=== PATIENT | female | born 1955 | race Caucasian/White ===

== ENCOUNTER 2022-03-15 19:38 | Inpatient (IN) | payer MEDICAID ==
[~2022-03-15] VITALS: Ht 157.5 cm; Wt 74.8 kg
[~2022-03-15 19:38] MED LIST: ALBU0.0912 IH; ASPI-1205 PO; AZIT250T3 PO; DEC1 PO; LISI-487 PO; RIVA20TA PO
[2022-03-15 20:18] VITALS: BP 227/105
[2022-03-15] MEDS ORDERED: LABETALOL 100 MG/20 ML VIAL IVP ONE ×2 (20:25→21:45)
--- NOTE | 2022-03-15 20:30 | NUR ---
received pt from intake and placed to bed 09. pt currently a/o x 4, gcs 15. able to move all extremities freely. pt is a 66 year old female with hx of HTN coming from home. she was recommended by her PCP to come in for evaluation of her HIGH BP. pt currently take metoprolol at home but does not seem to be working. sts that high BP has been happening since yesterday.
[2022-03-15 20:38] LABS: BASOPHILS % (AUTO) 0.9 % (0.0-2.0); EOSINOPHILS # (AUTO) 0.1 K/uL (0-0.4); EOSINOPHILS % (AUTO) 1.5 % (0.0-4.0); HEMATOCRIT 36.7 % (36-48); HEMOGLOBIN 12.3 g/dL (12.0-16.0); LYMPHOCYTES % (AUTO) 41.1 % (20.5-51.1); MEAN CORPUSCULAR HEMOGLOBIN 28 pg (27-31); MEAN CORPUSCULAR HGB CONC 34 g/dL (33-37); MEAN CORPUSCULAR VOLUME 82.3 fL (80-94); MONOCYTES # (AUTO) 0.4 K/uL (0.8-1.0); MONOCYTES % (AUTO) 8.6 % (1.7-9.3); NEUTROPHILS # (AUTO) 2.3 K/uL (1.8-7.7); NEUTROPHILS % (AUTO) 47.9 % (42.2-75.2); PLATELET COUNT (AUTO) 200 K/uL (140-450); RED BLOOD CELL COUNT(AUTO) 4.45 MIL/uL (4.20-5.40); RED CELL DISTRIBUTION WIDTH 14.7 % (11.6-13.7); WHITE BLOOD COUNT (AUTO) 4.9 K/uL (4.8-10.8)
[2022-03-15 21:08] LABS: ALBUMIN 3.8 g/dL (3.4-5.0); ANION GAP 10.4 (8-16); CARBON DIOXIDE 30.2 mmol/L (21-32); CHLORIDE 103 mmol/L (98-107); CREATININE 0.9 mg/dL (0.6-1.3); GFR ARICAN-AMERICAN 80 mL/min (>90); GLUCOSE 106 mg/dL (74-106); LIPASE 121 U/L (73-393); POTASSIUM 3.6 mmol/L (3.5-5.1); SODIUM SERUM 140 mmol/L (136-145); UREA NITROGEN, BLOOD 24 mg/dL (7-18)
[2022-03-15 21:31] LABS: ASPARTATE AMINOTRANSFERASE 20 U/L (15-37); TOTAL BILIRUBIN 0.3 mg/dL (0.0-1.0)
--- NOTE | 2022-03-15 22:29 | NUR ---
covid swab sent to lab.
[2022-03-15] MEDS ORDERED: ENALAPRILAT 2.5 MG/2 ML VIAL IVP ONE (22:40)
--- NOTE | 2022-03-15 22:40 | NUR ---
Dr. Mike made aware of pt remaining to be high BP. will put in orders.
[2022-03-15] MEDS ORDERED: ONDANSETRON 4 MG/2 ML VIAL IM/IVP PRN (22:55)
[2022-03-15] MEDS ORDERED: POTASSIUM CHLORIDE 10 MEQ TABER PO PRN (22:55)
[2022-03-15] MEDS ORDERED: ZOLPIDEM 5 MG TAB PO PRN (22:55)
[2022-03-15] MEDS ORDERED: DOCUSATE SODIUM 100 MG GELCAP PO PRN (22:55)
[2022-03-15] MEDS ORDERED: HYDROcodone/APAP 7.5/325 MG 1 TAB PO PRN (22:55)
[2022-03-15] MEDS ORDERED: ACETAMINOPHEN 325 MG TAB PO PRN (22:55)
[2022-03-15] MEDS ORDERED: guaiFENesin DM 200/20 MG-10 ML 10 ML UDC PO PRN (22:55)
[2022-03-15] MEDS ORDERED: hydrALAZINE 20 MG/ML VIAL IVP PRN (23:00)
[2022-03-15] MEDS ORDERED: cefTRIAXone 1,000 MG in LIDOCAINE MPF 1% 2.1 ML IM SCH (23:05)
[2022-03-15] MEDS ORDERED: cefTRIAXone 1,000 MG in LIDOCAINE MPF 1% 2.1 ML INJ SCH (23:17)
[2022-03-15 23:34] LABS: PROTHROMBIN TIME 10.3 secs (10.8-13.4)
--- NOTE | 2022-03-15 23:39 | NUR ---
report given to Nella LAWS from tele unit.
--- NOTE | 2022-03-15 23:57 | NUR ---
PATIENT TO ROOM 123-A FROM ER. 2350 PATIENT ALERT NO C/O OF PAIN B/P 145/65 TEMP 97.7 ON ROOM AIR LUNGS CLEAR PATIENT ALERT X4 SKIN INTACT ON MONITOR SINUS RHYS. HEART RATE 59.
[2022-03-16] VITALS: BP 145/65
[2022-03-16 01:07] LABS: CHOL/HDL RATIO 7.4 (1-4.5); FREE T4 (FREE THYROXINE) 0.86 ng/dL (0.76-1.46); MAGNESIUM 2.5 mg/dL (1.8-2.4)
[2022-03-16 01:08] LABS: THYROID STIMULATING HORMONE 7.83 uIU/mL (0.34-3.74)
[2022-03-16 04:00] VITALS: BP 145/65
--- NOTE | 2022-03-16 05:49 | NUR ---
DR. Ellie MORALES TEXT BY M.J AROUND 0100 TO SEE IF HE WANTED TO GIVE ROCEPHIN IVPB NO RESPONSE FROM DR. MORALES.
[2022-03-16 05:56] LABS: BASOPHILS % (AUTO) 0.8 % (0.0-2.0); EOSINOPHILS # (AUTO) 0.1 K/uL (0-0.4); EOSINOPHILS % (AUTO) 1.9 % (0.0-4.0); HEMATOCRIT 32.9 % (36-48); HEMOGLOBIN 11.3 g/dL (12.0-16.0); LYMPHOCYTES # (AUTO) 2.2 K/uL (2.5-16.5); LYMPHOCYTES % (AUTO) 40.9 % (20.5-51.1); MEAN CORPUSCULAR HEMOGLOBIN 28 pg (27-31); MEAN CORPUSCULAR HGB CONC 34 g/dL (33-37); MEAN CORPUSCULAR VOLUME 82.4 fL (80-94); MONOCYTES # (AUTO) 0.5 K/uL (0.8-1.0); MONOCYTES % (AUTO) 9.5 % (1.7-9.3); NEUTROPHILS # (AUTO) 2.5 K/uL (1.8-7.7); NEUTROPHILS % (AUTO) 46.9 % (42.2-75.2); PLATELET COUNT (AUTO) 213 K/uL (140-450); RED CELL DISTRIBUTION WIDTH 14.8 % (11.6-13.7); WHITE BLOOD COUNT (AUTO) 5.4 K/uL (4.8-10.8)
--- NOTE | 2022-03-16 07:26 | NUR ---
RECEIVED REPORT FROM TOOL SPECIALIST NURSE FOR CONTINUITY OF CARE. PT IN BED UTILIZING PHONE AT THIS TIME. RESPIRATIONS ARE EVEN AND UNLABORED ON ROOM AIR. NO SIGNS OF DISTRESS NOTED. PT IS ALERT AND ORIENTED X4, COOPERATIVE, AND ABLE TO VERBALIZE NEEDS TO STAFF, [place] SPEAKING ONLY. PT IS ON CARDIAC MONITORING, SR AT THIS TIME. ABD IS NONTENDER, NONDISTENDED WITH BOWEL SOUNDS PRESENT. PT IS ON CARDIAC DIET. PT IS CONTINENT OF BOWEL AND BLADDER. PT ABLE TO AMBULATE INDEPENDENTLY. PT HAS IV TO R FA, 20G. SKIN IS WARM, DRY, AND INTACT. CALL LIGHT WITHIN REACH. ALL SAFETY MEASURES IN PLACE. WILL CONTINUE TO MONITOR.
[2022-03-16 07:36] LABS: ANION GAP 12.4 (8-16); CARBON DIOXIDE 28.1 mmol/L (21-32); CREATININE 0.8 mg/dL (0.6-1.3); POTASSIUM 3.5 mmol/L (3.5-5.1)
[2022-03-16 08:00] VITALS: BP 154/84
[2022-03-16] MEDS: lisinopriL 20 MG TAB PO SCH (08:52)
[2022-03-16] MEDS: PANTOPRAZOLE 40 MG TABEC PO SCH (08:52)
--- NOTE | 2022-03-16 08:54 | NUR ---
ADMINISTERED ALL SCHEDULED MEDICATIONS. EDUCATED PT ON MEDS ADMINISTERED. ANSWERED ALL QUESTIONS. PT VERBALIZED UNDERSTANDING. WILL CONTINUE TO MONITOR.
--- NOTE | 2022-03-16 09:20 | NUR ---
PATIENT HAS BEEN SCREENED AND CATEGORIZED LOW NUTRITION RISK. PATIENT WILL BE SEEN WITHIN 7 DAYS OF ADMISSION. 03/20/[address] Addendum: 03/16/22 at [address] PT WILL BE SEEN BY 03/22/22*
--- NOTE | 2022-03-16 09:33 | NUR ---
RE-ASSESSMENTS FOR BP MEDICATION NOT DOCUMENTED BY INTERNAL CORROSION SPECIALIST NURSE.
[2022-03-16] MEDS ORDERED: hydroCHLOROthiazide 25 MG TAB PO SCH (10:45)
[2022-03-16] MEDS: ATORVASTATIN 20 MG TAB PO SCH (11:28)
[2022-03-16] MEDS: NIACIN 500 MG TAB PO SCH ×2 (11:29→21:20)
--- NOTE | 2022-03-16 11:31 | NUR ---
ORDERS PLACED FOR NEW MEDICATION. ADMINISTERED. WILL CONTINUE TO MONITOR.
[2022-03-16 12:00] VITALS: BP 156/83
[2022-03-16] MEDS: CIPROFLOXACIN 0.3% OP 2.5 ML BTL RIGHT EYE SCH ×3 (12:45→21:21)
[2022-03-16 13:51] LABS: BARBITURATE, URINE NEGATIVE ng/ml (NEG <=200); BENZODIAZEPINE, URINE NEGATIVE ng/mL (NEG <=200); CANNABINOID, URINE NEGATIVE ng/mL (NEG <=50); COCAINE, URINE NEGATIVE ng/mL (NEG <=300); OPIATE, URINE NEGATIVE ng/mL (NEG <=2000); PHENCYCLIDINE SCREEN,URINE NEGATIVE ng/mL (NEG <=25)
--- NOTE | 2022-03-16 14:21 | NUR ---
DID ROUNDS ON PT. PT SISTER AT BEDSIDE. SISTER ASKING FOR UPDATE, PT GAVE VERBAL CONSENT TO GIVE SISTER INFORMATION. UPDATED SISTER. ANSWERED ALL QUESTIONS. PT HAS NO COMPLAINTS OF PAIN OR DISCOMFORT AT THIS TIME. WILL CONTINUE TO MONITOR.
[2022-03-16 16:00] VITALS: BP 161/78
--- NOTE | 2022-03-16 17:10 | NUR ---
PT PICKED UP BY RADIOLOGY FOR SCHEDULED CT SCAN. WILL CONTINUE TO MONITOR.
--- NOTE | 2022-03-16 17:50 | NUR ---
PT RETURNED FROM CT SCAN. WILL CONTINUE TO MONITOR.
--- NOTE | 2022-03-16 19:10 | NUR ---
ENDORSED PT TO WAREHOUSE INCENTIVE SELECTOR NURSE FOR CONTINUITY OF CARE. ALL NEEDS MET THROUGHOUT SHIFT. PT IS STABLE.
--- NOTE | 2022-03-16 19:11 | NUR ---
RECD. RESTING IN BED, AWAKE, A/OX4. RESPIRATION EVEN AND UNLABORED. IV SALINE LOCK AT THE RIGHT FOREARM G18, PATENT AND INTACT. ABLE TO AMBULATE BY HERSELF. INSTRUCTED PATIENT TO CALL NURSE IF NEEDING HELP WHEN GETTING OUT OF BED. CALL LIGHT IN REACH. VERBALIZED UNDERSTANDING. DENIES PAIN 0/10.
[2022-03-16 20:00] VITALS: BP 134/68
--- NOTE | 2022-03-16 21:20 | NUR ---
SCHEDULED MEDICATIONS ADMINISTERED. TOLERATED WELL.
[2022-03-17] VITALS: BP 160/62
--- NOTE | 2022-03-17 01:40 | NUR ---
PATIENT UNABLE TO SLEEP, MEDICATED WITH AMBIEN 5 MG BUT CHANGED MIND, JUST WANTS TO HAVE ANOTHER ROOM BECAUSE AMBIEN MIGHT MAKE HER DROWSY IN THE MORNING. WILL WASTE MEDICATION.
--- NOTE | 2022-03-17 01:50 | NUR ---
TRANSFERRED TO ROOM 111A PER REQUESTED. REORIENTED TO ROOM SETTING. VERBALIZED UNDERSTANDING.
--- NOTE | 2022-03-17 03:00 | NUR ---
SLEEPING COMFORTABLY IN BED, RESPIRATION EVEN AND UNLABORED.
[2022-03-17 04:00] VITALS: BP 155/68
--- NOTE | 2022-03-17 05:00 | NUR ---
VERBALIZED SHE WAS ABLE TO SLEEP. HEALTH TEACHINGS GIVEN ON HOW TO LOWER CHOLESTEROL LEVEL IN THE BODY. VERBALIZED UNDERSTANDING.
[2022-03-17 05:25] LABS: BASOPHILS # (AUTO) 0.1 K/uL (0.00-0.22); BASOPHILS % (AUTO) 0.9 % (0.0-2.0); EOSINOPHILS # (AUTO) 0.1 K/uL (0-0.4); EOSINOPHILS % (AUTO) 2.6 % (0.0-4.0); HEMATOCRIT 35.2 % (36-48); LYMPHOCYTES # (AUTO) 2.2 K/uL (2.5-16.5); MEAN CORPUSCULAR HEMOGLOBIN 28 pg (27-31); MEAN CORPUSCULAR HGB CONC 34 g/dL (33-37); MEAN CORPUSCULAR VOLUME 82.4 fL (80-94); MONOCYTES # (AUTO) 0.5 K/uL (0.8-1.0); MONOCYTES % (AUTO) 9.2 % (1.7-9.3); NEUTROPHILS # (AUTO) 2.8 K/uL (1.8-7.7); NEUTROPHILS % (AUTO) 49.3 % (42.2-75.2); PLATELET COUNT (AUTO) 188 K/uL (140-450); RED BLOOD CELL COUNT(AUTO) 4.27 MIL/uL (4.20-5.40); RED CELL DISTRIBUTION WIDTH 14.9 % (11.6-13.7); WHITE BLOOD COUNT (AUTO) 5.7 K/uL (4.8-10.8)
[2022-03-17 05:55] LABS: ANION GAP 10.2 (8-16); CARBON DIOXIDE 29.6 mmol/L (21-32); CREATININE 0.9 mg/dL (0.6-1.3); POTASSIUM 3.8 mmol/L (3.5-5.1)
--- NOTE | 2022-03-17 07:00 | NUR ---
CONDITION REMAIN STABLE. WILL ENDORSE TO AM SHIFT NURSE FOR CONTINUITY OF CARE.
--- NOTE | 2022-03-17 07:05 | NUR ---
RECEIVED REPORT FROM SMASHER NURSE FOR CONTINUITY OF CARE. PT IN BED RESTING AT THIS TIME. RESPIRATIONS ARE EVEN AND UNLABORED ON ROOM AIR. NO SIGNS OF DISTRESS NOTED. PT IS ALERT AND ORIENTED X4, COOPERATIVE, ABLE TO FOLLOW COMMANDS, AND ABLE TO VERBALIZE NEEDS TO STAFF, SW[place] SPEAKING ONLY. PT IS ON CARDIAC MONITORING. ABD IS NONTENDER, NONDISTENDED WITH BOWEL SOUNDS PRESENT. PT IS ON CARDIAC DIET. PT IS CONTINENT OF BOWEL AND BLADDER. PT ABLE TO AMBULATE INDEPENDENTLY. PT HAS IV TO R FA, 20G. SKIN IS WARM, DRY, AND INTACT. CALL LIGHT WITHIN REACH. ALL SAFETY MEASURES IN PLACE. WILL CONTINUE TO MONITOR.
[2022-03-17 08:00] VITALS: BP 158/68
--- NOTE | 2022-03-17 08:00 | NUR ---
Patient's Plan of Care was discussed and reviewed with Noelle SEGURA
[2022-03-17 08:08] LABS: T4 (THYROXINE) 7.7 ug/dL (4.5-12.0)
[2022-03-17] MEDS: lisinopriL 20 MG TAB PO SCH (08:26)
[2022-03-17] MEDS: ATORVASTATIN 20 MG TAB PO SCH (08:27)
[2022-03-17] MEDS: PANTOPRAZOLE 40 MG TABEC PO SCH (08:27)
[2022-03-17] MEDS: NIACIN 500 MG TAB PO SCH (08:28)
[2022-03-17] MEDS: CIPROFLOXACIN 0.3% OP 2.5 ML BTL RIGHT EYE SCH ×3 (08:30→17:19)
--- NOTE | 2022-03-17 08:39 | NUR ---
DC PLANNING: THE PATIENT PRESENTED TO THE ED FROM HOME WITH C/O B/P OF 227/105 AT HER DOCTORS OFFICE, S/S OF LIGHTHEADEDNESS AND DIZZINESS. PATIENT STATES SHE IS COMPLIANT WITH HER HTN MEDICATIONS, GIVEN LABETOLOL IV IN ED. EKG NEGATIVE FOR ACUTE FINDINGS, LIPIDS ELEVATED WELL TSH AND MG+. PATIENT ADMITTED FOR MANAGEMENT OF HTN AND POTENTIAL EYE INFECTION, PLACED ON CIPRO EYE DROPS AND ROCEPHIN IV WELL ANTI-HYPERTENSIVES. CM SPOKE WITH THE PATIENT AND HER FRIEND IKE AT [facility] AND CONFIRMED HER ADDRESS AND PHONE NUMBER. THE PATIENT LIVES ALONE IN A GROUND FLOOR APARTMENT AND IS INDEPENDENT IN ALL ACTIVITIES. NO DME OR HOME HEALTH, STATES SHE HAS BEEN LESS ACTIVE BECAUSE OF BILATERAL KNEE PAIN. HAS BEEN WORKING AN [employer] WORKER BUT HASN'T WORKED SINCE LAST YEAR. SHE IS AND HAS AN INCOME OF $700/MONTH FROM HER EX- BUT IS STRUGGLING FINANCIALLY. SHE HAS APPLIED FOR SSI BUT WAS DENIED AND WOULD LIKE RESOURCES FOR FOOD STAMPS AND GR WHICH WAS ENDORSED TO THE . THE PATIENT STATES THAT SHE GETS MOST OF HER MEDICAL CARE IN [place] INCLUDING MEDICATIONS AND THAT WHEN SHE RUNS OUT SHE COMES TO THE EMERGENCY ROOM. IS CURRENTLY M/GIOVANNI PRESUMPTIVE, JACLYN IS WORKING ON GETTING HER FULL SCOPE M/GIOVANNI. DC PLAN IS TO RETURN HOME WHEN CLINICALLY STABLE, [facility] WILL FOLLOW. Addendum: 03/17/22 at 0857 by Kena Espino CM Amended: Links added.
--- NOTE | 2022-03-17 08:40 | NUR ---
ADMINISTERED ALL SCHEDULED MEDICATIONS. EDUCATED PT ON MEDS ADMINISTERED. ANSWERED ALL QUESTIONS. PT VERBALIZED UNDERSTANDING. WILL CONTINUE TO MONITOR.
[2022-03-17] MEDS ORDERED: amLODIPine 5 MG TAB PO SCH ×2 (09:00→11:45)
[2022-03-17] MEDS ORDERED: hydroCHLOROthiazide 25 MG TAB PO SCH (09:00)
--- NOTE | 2022-03-17 10:16 | NUR ---
NOTICED REDNESS TO PT IV. PT STATES WHEN SHE TURNED IN BED IT PULLED A BIT AND IS NOW BOTHERING HER A LITTLE. DC THIS IV. NEW IV PLACED TO RIGHT WRIST. PT TOLERATED WELL. WILL CONTINUE TO MONITOR.
[2022-03-17 12:00] VITALS: BP 147/71
--- NOTE | 2022-03-17 12:24 | NUR ---
PT DOWNGRADE FROM TELE TO MS. WILL CONTINUE TO MONITOR.
[2022-03-17] MEDS ORDERED: CILOS RIGHT EYE (13:31)
[2022-03-17] MEDS ORDERED: ATOR20TA40 PO (13:31)
[2022-03-17] MEDS ORDERED: AMLO-3 PO (13:31)
[2022-03-17] MEDS ORDERED: LISI20TA29 PO (13:31)
[2022-03-17] MEDS ORDERED: [UNRECOGNIZED DRUG - CODE] PO (13:31)
[2022-03-17] MEDS ORDERED: HYDR25TA32 PO (13:31)
--- NOTE | 2022-03-17 15:20 | NUR ---
PT HAS DISCHARGE ORDER IN PLACE. SPOKE WITH PT. PT STATES HER SISTER WILL BE THE ONE PICKING HER UP, HOWEVER, SISTER DOES NOT GET OFF OF WORK UNTIL 1729. PT STATES SHE WILL CALL SISTER TO SEE IF SHE CAN COME PICK HER UP EARLIER. WILL CONTINUE TO MONITOR.
--- NOTE | 2022-03-17 15:37 | NUR ---
DC PLANNING PATIENT IS A 66-YEAR-OLD FEMALE ADMITTED ON 03/15/2022 AT [facility]/ED DUE TO BLOOD PRESSURE BEEN OUT OF CONTROL IN THE 200'S. PATIENT HAS HX OF HYPERTENSION. (PATIENT IS GEORGIAN SPEAKING ONLY). SW MET WITH PATIENT AT BEDSIDE TO DISCUSS AND GATHER PATIENT'S COLLATERAL INFORMATION. PATIENT REPORTED LIVING AT HOME ALONE DUE TO BEEN RECENTLY . PATIENT STATED HAVING SUPPORT FROM HER FAMILY HER COUSIN IKE MAINLY WHO LIVES CLOSE TO HER AND HELPS HER WITH TRANSPORTATION. PATIENT REPORTED BEEN ACTIVE AND INDEPENDENT AT HOME, PATIENT REPORTED NOT HAVING ADVANCE DIRECTIVES AND WAS NOT INTERESTED ON GETTING INFORMATION PACKET PROVIDED BY SW AT THE TIME OF VISIT. PATIENT REPORTED NOT HAVING OR NEEDING DME AND NOT HAVING ANY ISSUES WITH GETTING OR TAKING ANY MEDICATIONS. SW EXPLAINED TO PATIENT THE NEED TO FOLLOW UP WITH AN APPOINTMENT WITHIN 5-7 DAYS WITH HER PCP AFTER DC, PATIENT AGREED AND WILL BE MAKING HER OWN FOLLOW UP APPOINTMENT; WITH PRIMARY DOCTOR SHE GOES TO IN THE CLINIC IN [place] CALL [facility]. AFTER SHE IS DC FROM [facility]. SW ALSO PROVIDED PATIENT WITH A LIST OF CLINIC RESOURCES. PATIENT STATED THAT HER COUSIN IKE WILL BE ASSISTING WITH TRANSPORTATION BACK HOME WHEN SHE IS READY FOR DISCHARGE. SW WILL FOLLOW UP WITH PATIENT NEEDED.
[2022-03-17 15:54] VITALS: BP 139/67
[2022-03-17 16:00] VITALS: BP 139/67
--- NOTE | 2022-03-17 17:30 | NUR ---
WENT OVER DISCHARGE PAPERWORK WITH PT. ANSWERED ALL QUESTIONS. PT SIGNED ALL PAPERWORK. AWAITING PT SISTER TO COME AND PICK HER UP. WILL CONTINUE TO MONITOR.
--- NOTE | 2022-03-17 17:43 | NUR ---
PT DISCHARGED HOME WITH FAMILY. AMBULATED OFF UNIT. WRIST BAND REMOVED. IV REMOVED. IV CATHETER INTACT. ALL BELONGINGS TAKEN UPON DISCHARGE.
== END 2022-03-17 17:40 | disposition home or self-care (01) | DRG 199 ==
LOC: MED 19:38 → MMU 22:58 → MTU 23:15
PROVIDERS: ADMIT Family Medicine; ATTEND Family Medicine
DX: I16.0 Hypertensive urgency (principal); N13.30 Unspecified hydronephrosis; Z20.822 Contact with and (suspected) exposure to COVID-19; E03.8 Other specified hypothyroidism; E78.2 Mixed hyperlipidemia; I10 Essential (primary) hypertension; Z86.711 Personal history of pulmonary embolism; Z86.16 Personal history of COVID-19
CPT/HCPCS: 36415; 70450; 71045; 71275; 80048; 80053; 80305; 82150; 83036; 83690; 83735; 83880; 84100; 84436; 84439; 84443; 84479; 84484; 85025; 85610; 85730; 87081; 93005; 96374; 96375; 96376; 99285; J0696; J1644; J3490; J7060; Q0092; Q9967